=== PATIENT | male | born 1985 | race African-American/Black ===

== ENCOUNTER 2022-02-05 19:20 | Emergency (ER) | payer MEDICAID, SELFPAY ==
[2022-02-05 19:24] VITALS: BP 139/78; PULSE 126; RESP 18; TEMP 37.4; O2SAT 100; BMI 30.9
--- NOTE | 2022-02-05 19:29 | DI.RAD.S_ITS ---
PROCEDURE: XR CHEST 1V INDICATIONS: suspected sepsis TECHNIQUE: One view of the chest was acquired. COMPARISON: None. FINDINGS: Surgical changes and devices: None. Lungs and pleura: Lungs are clear. No pleural effusions or pneumothorax. Mediastinum: Mediastinal contours appear normal. Heart size is normal. Bones and chest wall: No suspicious bony lesions. Overlying soft tissues appear unremarkable. IMPRESSION: Normal for age, source of current suspected sepsis symptoms is not seen. Dictated by: Glenroy Tamez M.D. on 02/05/2022 at 21:04 Approved by: Glenroy Tamez M.D. on 02/05/2022 at 21:05
--- NOTE | 2022-02-05 19:33 | ED_ITS ---
HPI - Skin/Abscess/Foreign Bdy General Chief complaint: Skin/Abscess/Foreign Body Stated complaint: Left hand injury Time Seen by Provider: 02/05/22 19:26 Source: patient Mode of arrival: Ambulatory Limitations: no limitations History of Present Illness HPI narrative: 37-year-old male smoker with history of IV drug abuse presents with family in the chief complaint of severe pain and swelling of his left hand. He admits to being a user of both fentanyl and methamphetamines. He is had frequent skin infections in the past. He states that he had just been at another facility because of this significant pain and swelling and has a ring stuck on his finger that they were attempting to remove, he was insufficient pain and became agitated and admittedly left against medical advice and presented here. He presents with the mother of his child who states she encouraged him to come against his wishes. He is had fever and chills and feels ill. He admits that he is scared and nervous but wants help. He denies any runny nose, sore throat or cough. He has no chest pain or shortness of breath. He is not a great historian and states that he has been having pain and swelling in his hand probably for a few days. He denies any specific injury Related Data Allergies Allergy/AdvReac Type Severity Reaction Status Date / Time No Known Drug Allergies Allergy Verified 02/05/22 21:36 Review of Systems Review of Systems Narrative: GENERAL: Denies chills, fatigue, malaise, fever, sweats. HEENT: Denies sinus pain, ear pain, sore throat, difficulty swallowing, dizziness. RESPIRATORY: Denies dyspnea, cough, wheezing, hemoptysis, sputum. CARDIOVASCULAR: Denies chest pain, palpitations, orthopnea, edema, GASTROINTESTINAL: Denies nausea, vomiting, abdominal pain, diarrhea, constipation, melena. : Denies dysuria, frequency, incontinence, hematuria, urinary retention. MUSCULOSKELETAL: See HPI SKIN: See HPI NEUROLOGIC: Denies weakness, headache, numbness, change in speech, confusion, seizures, incoordination. PSYCHIATRIC: No concerning psychosocial issues. 12 point review of systems is negative except for those stated above Patient History Social History Smoking Status: Never smoker Smoking Status: Never smoker alcohol intake frequency: 0-2 drinks per day Substance Use Type: heroin, opiates and methamphetamine Exam Narrative Exam Narrative: GENERAL: [37] year old patient appears stated age. Patient is anxious and unwell, GCS 15, demonstrates capacity and is able to speak clearly and walk a straight line HEAD: Atraumatic. Normocephalic. EYES: Pupils equal round and reactive. Extraocular motions intact. No scleral icterus. No injection or drainage. ENT: Nose without bleeding, purulent drainage. Throat without erythema, tonsillar hypertrophy or exudate. Airway patent. NECK: Trachea midline. Non tender CARDIOVASCULAR: Tachycardic but regular rhythm without murmurs, gallops, or rubs. RESPIRATORY: Clear to auscultation. Breath sounds equal bilaterally. No wheezes, rales, or rhonchi. GASTROINTESTINAL: Abdomen soft, non-tender, nondistended. EXTREMITIES: Left hand with significant swelling of all fingers it which extends proximally to include the dorsum of the hand as well as palmar surface, he is unable to make a fist due to significant pain, there is erythema and some lymphangitis extending proximally. There is a ring that has been partially cut on his left 4th finger with significant skin breakdown underneath in concern for tourniquet effect BACK: Nontender without deformity or crepitance. No flank tenderness. NEURO: AOx3. SKIN: No rash or erythema of visible areas Initial Vital Signs Initial Vital Signs: Vital Signs Temperature 99.4 F 02/05/22 19:24 Pulse Rate 126 02/05/22 19:24 Respiratory Rate 18 02/05/22 19:24 Blood Pressure 139/78 02/05/22 19:24 Pulse Oximetry 100 02/05/22 19:24 Oxygen Delivery Method 02/05/22 19:24 Course Orders Ordered: ED Orders 02/05/22 19:29 XR chest 1V Stat RT Consult Eval and Treat NOW 02/05/22 19:35 CRP [C-Reactive Protein Quant] Stat Complete Blood Count AUTO DIFF Stat Comprehensive Metabolic Panel Stat ESR [Erythrocyte Sedimentation Rate] Stat Ethanol (ETOH) Stat Lactate (Lactic Acid) Stat Lipase Stat Procalcitonin Stat 02/05/22 19:52 CT UE LT w con Stat 02/05/22 19:54 EKG-12 Lead Stat 02/05/22 19:56 Blood Culture Stat 02/05/22 20:07 Urine Drug Screen, Rapid Stat 02/05/22 20:09 COVID19 -Nasal RAPID/Pre-Proc Stat Discontinued Medications Sodium Chloride (Normal Saline 0.9%) 1,000 mls @ 1,000 mls/hr IV BOLUS ONE Stop: 02/05/22 20:28 Last Infusion: 02/05/22 21:36 Dose: 0 mls/hr Documented By: Infusion: 02/05/22 20:49 Dose: 0 mls/hr Documented By: Admin: 02/05/22 19:52 Dose: 1,000 mls/hr Documented By: YAKELIN Sodium Chloride (Normal Saline 0.9%) 1,776 mls @ 592 mls/hr 30 ml/kg infuse over 3 hr (1776 ml) IV NOW ONE Stop: 02/05/22 22:37 Last Infusion: 02/05/22 20:48 Dose: 0 mls/hr Documented By: Admin: 02/05/22 19:52 Dose: 592 mls/hr Documented By: YAKELIN Vancomycin HCl/Dextrose (Vancomycin) 1,500 mg in 300 mls @ 200 mls/hr IV NOW ONE Stop: 02/05/22 21:23 Last Infusion: 02/05/22 22:18 Dose: 0 mls/hr Documented By: Infusion: 02/05/22 20:49 Dose: 0 mls/hr Documented By: Admin: 02/05/22 20:07 Dose: 200 mls/hr Documented By: CHICA Lactated Ringer's (Lactated Ringers) 1,000 mls @ 42 mls/hr IV CONT JERMAN Consultations Consultation #1: Early consultation with Orthopedic surgery, after reviewing history and physical exam she states she is on her way and is activated the OR team Vital Signs Vital signs: Vital Signs - 8 hr 02/05/22 19:24 Temperature 99.4 F Pulse Rate 126 Respiratory Rate 18 Blood Pressure 139/78 Pulse Oximetry 100 Oxygen Delivery Method Room Air MDM - Skin/Abscess/Foreign Bdy Lab Data Result diagrams: 02/05/22 19:35 02/05/22 19:35 Labs: Lab Results 02/05/22 02/05/22 02/05/22 Range/Units 19:35 19:35 19:35 WBC 31.6 H* (4.5-11.0) X10^3/uL RBC 3.96 L (4.5-5.9) X10^6/uL Hgb 11.6 L (13.5-17.5) g/dL Hct 34.5 L (41-53) % MCV 87.1 (80-100) fL MCH 29.3 (26-34) PG MCHC 33.7 (30-36) % RDW 14.0 (11.6-14.8) % Plt Count 445 H (150-400) X10^3/uL Neut % (Auto) Not Reportable Lymph % (Auto) Not Reportable [place] % (Auto) Not Reportable Eos % (Auto) Not Reportable Baso % (Auto) Not Reportable Lymph # (Auto) Not Reportable [place] # (Auto) Not Reportable Baso # (Auto) Not Reportable Total Counted 100 Seg Neutrophils % 88.0 H (38-70) % Lymphocytes % (Manual) 6.0 L (25-45) % Monocytes % (Manual) 5.0 (2-11) % Promyelocytes % 1.0 H (-0) % Neutrophils # (Manual) 77870 H (8075-8589) /uL Smudge Cells 3+ H RBC Morphology See below ESR (0-15) MM/HR Sodium 132 L (137-145) mmol/L Potassium 3.4 (3.4-5.1) mmol/L Chloride 102 (98-107) mmol/L Carbon Dioxide 23 (22-32) mmol/L BUN 7 L (9-20) mg/dL Creatinine 0.63 L (0.66-1.25) mg/dL Estimated GFR > 60 (>60) mL/min BUN/Creatinine Ratio 11.1 (6-22) Glucose 103 H (70-100) mg/dL Lactate 1.6 (0.7-2.1) mmol/L Calcium 8.2 L (8.4-10.2) mg/dL Total Bilirubin 0.8 (0.2-1.3) mg/dL AST 62 H (17-59) IU/L ALT 45 (<50) IU/L Alkaline Phosphatase 104 (38-126) U/L C-Reactive Protein (<1.0) mg/dL Total Protein 7.0 (6.3-8.2) g/dL Albumin 3.5 (3.5-5.0) g/dL Globulin 3.5 (1.7-4.1) g/dL Albumin/Globulin Ratio 1.0 (1.0-2.8) Lipase 54 (23-300) U/L Procalcitonin 0.19 (<0.5) ng/mL U Opiates 300ng/mL cut (Negative) Ur Oxycodone Screen (Negative) Urine Methadone Screen (Negative) Ur Barbiturates Screen (Negative) U Tricyclic Antidepress (Negative) Ur Phencyclidine Scrn (Negative) Ur Amphetamines Screen (Negative) U Methamphetamines Scrn (Negative) Ur MDMA Scrn (Ecstasy) (Negative) U Benzodiazepines Scrn (Negative) Urine Cocaine Screen (Negative) U Marijuana (THC) Screen (Negative) Ethyl Alcohol ( - 10) mg/dL SARS-CoV-2 (PCR) (Negative) 02/05/22 02/05/22 02/05/22 Range/Units 19:35 19:35 19:35 WBC (4.5-11.0) X10^3/uL RBC (4.5-5.9) X10^6/uL Hgb (13.5-17.5) g/dL Hct (41-53) % MCV (80-100) fL MCH (26-34) PG MCHC (30-36) % RDW (11.6-14.8) % Plt Count (150-400) X10^3/uL Neut % (Auto) Lymph % (Auto) [place] % (Auto) Eos % (Auto) Baso % (Auto) Lymph # (Auto) [place] # (Auto) Baso # (Auto) Total Counted Seg Neutrophils % (38-70) % Lymphocytes % (Manual) (25-45) % Monocytes % (Manual) (2-11) % Promyelocytes % (-0) % Neutrophils # (Manual) (9962-2876) /uL Smudge Cells RBC Morphology ESR 35 H (0-15) MM/HR Sodium (137-145) mmol/L Potassium (3.4-5.1) mmol/L Chloride (98-107) mmol/L Carbon Dioxide (22-32) mmol/L BUN (9-20) mg/dL Creatinine (0.66-1.25) mg/dL Estimated GFR (>60) mL/min BUN/Creatinine Ratio (6-22) Glucose (70-100) mg/dL Lactate (0.7-2.1) mmol/L Calcium (8.4-10.2) mg/dL Total Bilirubin (0.2-1.3) mg/dL AST (17-59) IU/L ALT (<50) IU/L Alkaline Phosphatase (38-126) U/L C-Reactive Protein 15.8 H (<1.0) mg/dL Total Protein (6.3-8.2) g/dL Albumin (3.5-5.0) g/dL Globulin (1.7-4.1) g/dL Albumin/Globulin Ratio (1.0-2.8) Lipase (23-300) U/L Procalcitonin (<0.5) ng/mL U Opiates 300ng/mL cut (Negative) Ur Oxycodone Screen (Negative) Urine Methadone Screen (Negative) Ur Barbiturates Screen (Negative) U Tricyclic Antidepress (Negative) Ur Phencyclidine Scrn (Negative) Ur Amphetamines Screen (Negative) U Methamphetamines Scrn (Negative) Ur MDMA Scrn (Ecstasy) (Negative) U Benzodiazepines Scrn (Negative) Urine Cocaine Screen (Negative) U Marijuana (THC) Screen (Negative) Ethyl Alcohol 33 H ( - 10) mg/dL SARS-CoV-2 (PCR) (Negative) 02/05/22 02/05/22 Range/Units 20:07 20:09 WBC (4.5-11.0) X10^3/uL RBC (4.5-5.9) X10^6/uL Hgb (13.5-17.5) g/dL Hct (41-53) % MCV (80-100) fL MCH (26-34) PG MCHC (30-36) % RDW (11.6-14.8) % Plt Count (150-400) X10^3/uL Neut % (Auto) Lymph % (Auto) [place] % (Auto) Eos % (Auto) Baso % (Auto) Lymph # (Auto) [place] # (Auto) Baso # (Auto) Total Counted Seg Neutrophils % (38-70) % Lymphocytes % (Manual) (25-45) % Monocytes % (Manual) (2-11) % Promyelocytes % (-0) % Neutrophils # (Manual) (3979-5104) /uL Smudge Cells RBC Morphology ESR (0-15) MM/HR Sodium (137-145) mmol/L Potassium (3.4-5.1) mmol/L Chloride (98-107) mmol/L Carbon Dioxide (22-32) mmol/L BUN (9-20) mg/dL Creatinine (0.66-1.25) mg/dL Estimated GFR (>60) mL/min BUN/Creatinine Ratio (6-22) Glucose (70-100) mg/dL Lactate (0.7-2.1) mmol/L Calcium (8.4-10.2) mg/dL Total Bilirubin (0.2-1.3) mg/dL AST (17-59) IU/L ALT (<50) IU/L Alkaline Phosphatase (38-126) U/L C-Reactive Protein (<1.0) mg/dL Total Protein (6.3-8.2) g/dL Albumin (3.5-5.0) g/dL Globulin (1.7-4.1) g/dL Albumin/Globulin Ratio (1.0-2.8) Lipase (23-300) U/L Procalcitonin (<0.5) ng/mL U Opiates 300ng/mL cut Negative (Negative) Ur Oxycodone Screen Negative (Negative) Urine Methadone Screen Negative (Negative) Ur Barbiturates Screen Negative (Negative) U Tricyclic Antidepress Negative (Negative) Ur Phencyclidine Scrn Negative (Negative) Ur Amphetamines Screen Positive H (Negative) U Methamphetamines Scrn Positive H (Negative) Ur MDMA Scrn (Ecstasy) Negative (Negative) U Benzodiazepines Scrn Negative (Negative) Urine Cocaine Screen Negative (Negative) U Marijuana (THC) Screen Positive H (Negative) Ethyl Alcohol ( - 10) mg/dL SARS-CoV-2 (PCR) Negative (Negative) Urine Dip Bedside Urine Glucose Negative Bedside Urine Bilirubin - Negative Bedside Urine Ketone - Negative Urine Specific Staples 1.010 Bedside Urine Occult Blood +/- Bedside Urine pH 6.0 Bedside Urine Protein - Negative Bedside Urine Urobilinogen - Negative Bedside Urine Nitrite - Negative Bedside Urine Leukocytes - Negative Esterase MDM Narrative Medical decision making narrative: Patient with history and physical exam concerning for flexor tenosynovitis, and likely deep space infection of the left hand which clearly requires surgical intervention. Brief attempt to remove ring at the bedside but swelling is so significant that any ring removal tool is unable to reach the ring. Patient was initially quite resistant to the concept of a trip to the OR but after extensive discussion at the bedside involving myself, nursing as well as the mother of his child he elects to proceed to the operating room. He does demonstrate capacity to make his own decisions, he is speaking clearly and is articulate, he understands the risks and benefits of surgical intervention and eventually is open to the idea and recognizes the need Discharge Plan Departure Patient Disposition: Admitted to Surgery Clinical Impression: Sepsis, Infected hand, Flexor tenosynovitis of finger Admit Date/Time: 02/05/22 20:44 Admit Provider: Crystal Nicholas
[2022-02-05] MEDS: SODIUM CHLORIDE 0.9% 1,776 ML 592 ML IV (19:52)
[2022-02-05] MEDS: SODIUM CHLORIDE 0.9% 1,000 ML 1000 ML IV (19:52)
--- NOTE | 2022-02-05 19:52 | DI.CT.S_ITS ---
PROCEDURE: CT UE LT W CON INDICATIONS: deep infection of hand/arm, abscess? TECHNIQUE: After the administration of intravenous contrast, 3 mm axial sections acquired of the left distal forearm and wrist area. , with coronal and sagittal reformats. COMPARISON: None. FINDINGS: Image quality: Significantly degraded by patient motion during image acquisition.. Bones: Very limited quality visualization, no definite acute disease. Soft tissues: Very limited quality visualization, no definite acute disease. IMPRESSION: The study is quite limited by patient motion during image acquisition. Follow-up contrast-enhanced CT or MR scanning likely is warranted if the patient is willing to cooperate with the examination. In my opinion abscess or osteomyelitis has not been fully excluded but is considered unlikely based on the images available. Plain film follow-up imaging may be warranted also given the short acquisition time.. Dictated by: Glenroy Tamez M.D. on 02/05/2022 at 21:31 Approved by: Glenroy Tamez M.D. on 02/05/2022 at 21:33
[2022-02-05 19:56] LABS: Hematocrit 34.5 % (41-53); Hemoglobin 11.6 g/dL (13.5-17.5); Mean Corpuscular HGB Conc 33.7 % (30-36); Mean Corpuscular Hemoglobin 29.3 PG (26-34); Mean Corpuscular Volume 87.1 fL (80-100); Platelet Count 445 X10^3/uL (150-400); Red Blood Cell Count 3.96 X10^6/uL (4.5-5.9)
[2022-02-05 19:59] LABS: Lactate (Lactic Acid) 1.6 mmol/L (0.7-2.1)
[2022-02-05 20:00] LABS: Add Manual Diff / Slide Review YES; White Blood Cell Count 31.6 X10^3/uL (4.5-11.0)
[2022-02-05 20:02] LABS: Alanine Aminotransferase 45 IU/L (<50); Albumin 3.5 g/dL (3.5-5.0); Alkaline Phosphatase 104 U/L (38-126); Aspartate Aminotransferase 62 IU/L (17-59); BUN Creatinine Ratio 11.1 (6-22); Bilirubin Total 0.8 mg/dL (0.2-1.3); Blood Urea Nitrogen 7 mg/dL (9-20); Calcium 8.2 mg/dL (8.4-10.2); Carbon Dioxide 23 mmol/L (22-32); Chloride 102 mmol/L (98-107); Estimated Glomerular Filt Rate > 60 mL/min (>60); Globulin 3.5 g/dL (1.7-4.1); Glucose 103 mg/dL (70-100); HEMOLYSIS < 15 (0-50); Lipase 54 U/L (23-300); Potassium 3.4 mmol/L (3.4-5.1); Sodium 132 mmol/L (137-145)
[2022-02-05] MEDS: VANCOMYCIN 1,500 MG/300 ML PIGGYBACK 200 MG IV (20:07)
[2022-02-05 20:17] LABS: Procalcitonin 0.19 ng/mL (<0.5)
[2022-02-05 20:21] LABS: Ethanol (ETOH) 33 mg/dL
[2022-02-05 20:24] LABS: Erythrocyte Sedimentation Rate 35 MM/HR (0-15)
[2022-02-05 20:26] LABS: Ur Creatinine Normal (Normal); Ur Specific Gravity Normal (Normal); Urine Cocaine Negative (Negative); Urine Tetrahydrocannabinol Positive (Negative); Urine pH Normal (Normal)
[2022-02-05 20:27] LABS: UR Morphine/Opiate cutoff 300 Negative (Negative); Urine Amphetamines Positive (Negative); Urine Barbiturates Negative (Negative); Urine Benzodiazepines Negative (Negative); Urine MDMA Negative (Negative); Urine Methadone Negative (Negative); Urine Methamphetamines Positive (Negative); Urine Oxycodone Negative (Negative); Urine Phencyclidine Negative (Negative); Urine Tricyclic Antidepressant Negative (Negative)
[2022-02-05 20:34] LABS: Neutrophils Absolute Manual 27808 /uL (3000-5900); Total Cells Counted 100
[2022-02-05 20:37] LABS: COVID19 -Nasal RAPID Negative (Negative)
[2022-02-05 20:38] LABS: Smudge Cells 3+
[2022-02-05 20:39] LABS: C-Reactive Protein Quant 15.8 mg/dL (<1.0)
--- NOTE | 2022-02-05 21:08 | SUR.HOLD ---
Patient to holding area with PACU nurse but patient refusing to have surgery, refusing to lie down; states that he is afraid of surgery and does not want to go to sleep. Dr Fenton, ER physician, and Dr Nicholas, Surgeon at bedside for staff safety due to patient being under the influence of fentanyl and methamphetamines. Multiple attempts made by multiple staff members to encourage patient to agree to surgery. Daisy, girlfriend of patient, at bedside to attempt to convince patient to have surgery.
--- NOTE | 2022-02-05 21:33 | P.HP_ITS ---
History of Present Illness History of Present Illness Date Patient Seen: 02/05/22 Time Patient Seen: 21:33 Chief complaint: Left hand injury Narrative: Patient is a 37-year-old male with a history of IV drug use well as methamphetamines and fentanyl. He had a week and a half left hand pain and left ring finger swelling. significant erythema and ring finger swelling. He was seen at [facility] ER yesterday with a attempted to cut the ring off they were unsuccessful and the patient left to smoke. Since then he has had increased swelling and pain and presents to [facility] Emergency Room where he was noted to have a fusiform swollen digit is low [place] [address] and a CRP of 15. Presentation of sepsis was indicated for operative removal of the ring and drainage of hand abscess suspected flexor tenosynovitis. They were unable to access the ring with the ring cutters in the emergency room. Of note the patient is extremely anxious at the thought of ?anesthesia and ?going to sleep he has been counseled extensively by the ER staff, anesthesiologist and myself. Unfortunately with his infection and swelling wo uld not be a candidate to tolerate a local anesthetic. He is also to states that he would not stay overnight. We discussed the importance of IV antibiotics for his condition and risks of worsening. Some history is obtained from the former partner seizures a 14-year-old daughter with. The partner [place] him [place] music [place] and his finger and brought him to the hospital but they otherwise do not have a relationship. Of but she states that the patient recently got out of penitentiary was in [place] for 5 years and we released and a and states he has gotten back into drugs. Using [id number] (little blue pills) Patient History Family & Social History Safety & Behavioral: Feels Safe in Current Yes Environment Tobacco & Substance use: Smoking Status Never smoker alcohol intake frequency 0-2 drinks per day Substance Use Type heroin,opiates,methamphetamine Meds Home Medications and Allergies Allergies Allergy/AdvReac Type Severity Reaction Status Date / Time No Known Drug Allergies Allergy Verified 02/05/22 21:36 Review of Systems Review of Systems Narrative: Anxiety, chills, states his body is ?sick? left hand swelling pain ROS: Yes All systems reviewed with the patient and are negative except as otherwise documented Exam Vital Signs (past 8 hours): - 02/05/22 19:24 Temperature 99.4 F Pulse Rate 126 Respiratory Rate 18 Blood Pressure 139/78 Pulse Oximetry 100 Oxygen Delivery Method Room Air Oxygen Delivery Method Room Air Narrative Exam Narrative: Anxious appearing male pacing around the preoperative unit this to sit down. Moderate distress. Mentions he does not want to go to sleep but okay to be cut does not want to stay overnight but knows his hand is bad. Respirations unlabored on room air lungs clear Heart tachycardia Left hand ring in place extreme swelling ring finger with exploration ulceration partly dorsally under the ring. No other wounds. There is fusiform swelling of the ring digit tenderness over the A1 mi. Global swelling of the left hand. With moderate erythema. Forearm is soft. Radial pulses palpable Const General: anxious Objective Imaging CT- UE: Radiologist's impression: IMPRESSION: The study is quite limited by patient motion during image acquisition. Follow-up contrast-enhanced CT or MR scanning likely is warranted if the patient is willing to cooperate with the examination. In my opinion abscess or osteomyelitis has not been fully excluded but is considered unlikely based on the images available. Plain film follow-up imaging may be warranted also given the short acquisition time.. Dictated by: Glenroy Tamez M.D. on 02/05/2022 at 21:31 Labs Result Diagrams: 02/05/22 19:35 02/05/22 19:35 Labs: Laboratory Results - last 24 hr 02/05/22 02/05/22 02/05/22 19:35 19:35 19:35 WBC 31.6 H* RBC 3.96 L Hgb 11.6 L Hct 34.5 L MCV 87.1 MCH 29.3 MCHC 33.7 RDW 14.0 Plt Count 445 H Neut % (Auto) Not Reportable Lymph % (Auto) Not Reportable [place] % (Auto) Not Reportable Eos % (Auto) Not Reportable Baso % (Auto) Not Reportable Lymph # (Auto) Not Reportable [place] # (Auto) Not Reportable Baso # (Auto) Not Reportable Total Counted 100 Seg Neutrophils % 88.0 H Lymphocytes % (Manual) 6.0 L Monocytes % (Manual) 5.0 Promyelocytes % 1.0 H Neutrophils # (Manual) 65830 H Smudge Cells 3+ H RBC Morphology See below ESR Sodium 132 L Potassium 3.4 Chloride 102 Carbon Dioxide 23 BUN 7 L Creatinine 0.63 L Estimated GFR > 60 BUN/Creatinine Ratio 11.1 Glucose 103 H Lactate 1.6 Calcium 8.2 L Total Bilirubin 0.8 AST 62 H ALT 45 Alkaline Phosphatase 104 C-Reactive Protein Total Protein 7.0 Albumin 3.5 Globulin 3.5 Albumin/Globulin Ratio 1.0 Lipase 54 Procalcitonin 0.19 U Opiates 300ng/mL cut Ur Oxycodone Screen Urine Methadone Screen Ur Barbiturates Screen U Tricyclic Antidepress Ur Phencyclidine Scrn Ur Amphetamines Screen U Methamphetamines Scrn Ur MDMA Scrn (Ecstasy) U Benzodiazepines Scrn Urine Cocaine Screen U Marijuana (THC) Screen Ethyl Alcohol SARS-CoV-2 (PCR) 02/05/22 02/05/22 02/05/22 19:35 19:35 19:35 WBC RBC Hgb Hct MCV MCH MCHC RDW Plt Count Neut % (Auto) Lymph % (Auto) [place] % (Auto) Eos % (Auto) Baso % (Auto) Lymph # (Auto) [place] # (Auto) Baso # (Auto) Total Counted Seg Neutrophils % Lymphocytes % (Manual) Monocytes % (Manual) Promyelocytes % Neutrophils # (Manual) Smudge Cells RBC Morphology ESR 35 H Sodium Potassium Chloride Carbon Dioxide BUN Creatinine Estimated GFR BUN/Creatinine Ratio Glucose Lactate Calcium Total Bilirubin AST ALT Alkaline Phosphatase C-Reactive Protein 15.8 H Total Protein Albumin Globulin Albumin/Globulin Ratio Lipase Procalcitonin U Opiates 300ng/mL cut Ur Oxycodone Screen Urine Methadone Screen Ur Barbiturates Screen U Tricyclic Antidepress Ur Phencyclidine Scrn Ur Amphetamines Screen U Methamphetamines Scrn Ur MDMA Scrn (Ecstasy) U Benzodiazepines Scrn Urine Cocaine Screen U Marijuana (THC) Screen Ethyl Alcohol 33 H SARS-CoV-2 (PCR) 02/05/22 02/05/22 20:07 20:09 WBC RBC Hgb Hct MCV MCH MCHC RDW Plt Count Neut % (Auto) Lymph % (Auto) [place] % (Auto) Eos % (Auto) Baso % (Auto) Lymph # (Auto) [place] # (Auto) Baso # (Auto) Total Counted Seg Neutrophils % Lymphocytes % (Manual) Monocytes % (Manual) Promyelocytes % Neutrophils # (Manual) Smudge Cells RBC Morphology ESR Sodium Potassium Chloride Carbon Dioxide BUN Creatinine Estimated GFR BUN/Creatinine Ratio Glucose Lactate Calcium Total Bilirubin AST ALT Alkaline Phosphatase C-Reactive Protein Total Protein Albumin Globulin Albumin/Globulin Ratio Lipase Procalcitonin U Opiates 300ng/mL cut Negative Ur Oxycodone Screen Negative Urine Methadone Screen Negative Ur Barbiturates Screen Negative U Tricyclic Antidepress Negative Ur Phencyclidine Scrn Negative Ur Amphetamines Screen Positive H U Methamphetamines Scrn Positive H Ur MDMA Scrn (Ecstasy) Negative U Benzodiazepines Scrn Negative Urine Cocaine Screen Negative U Marijuana (THC) Screen Positive H Ethyl Alcohol SARS-CoV-2 (PCR) Negative Assessment & Plan Assessment and plan (1) Sepsis: Status: Acute (2) Infected hand: Status: Acute (3) Flexor tenosynovitis of finger: Status: Acute Plan Plan was to be operative debridement and ring removal for his hand abscesses and then admission to the hospital for IV antibiotics and treatment for sepsis. However in the preoperative area the patient refused surgery. His previous partner that brought him to the hospital states she had spoken with him and heard him agree to surgery few minutes earlier. Unfortunately patient was now adamant on not ?going to sleep he denied any family history of medication reactions to this. He was very anxious and pacing in the PACU and said that he was ?freaking out. myself Dr. Aguilar and Dr. Reddy discussed with the patient the seriousness of his condition and the treatment that were indicated. Stated that he could not think about that when he was ?freaking out. He was offered medication for his anxiety. He received some Versed which calmed him down. This was allowed to wear off and this partner was brought back to PACU with us to once again asked him if he would allow treatment. He would not allow anesthesia however agreed and asked for attempt on ring removal at bedside -this was briefly attempted but I was just able to get the needle-nose plier under the ring and the pain was intolerable for him this is discontinued. Discussed any further attempts at removal or treatment of the infection as discussed previously require general anesthetic. He once again declined this and signed Against Medical Advice paperwork and left. At this point he had finished about 80% of the vancomycin 1.5 g infusion. His IV was discontinued prior to leaving against medical advice. COVID-19 COVID-19 status: Negative Time Spent With Patient Time with patient: 30 to 49 minutes with 50% spent counseling/coordinating care Critical Care time: I spent a total of [] minutes of critical care time on this patient's care today; this time is exclusive of procedural time.
--- NOTE | 2022-02-05 21:34 | SUR.HOLD ---
Patient drowsy now from use of Versed to calm him down; girlfriend at bedside. Explained to girlfriend that due to legal implications, patient could not be forced into surgery or anesthesia. There is no one legally who can make decisions for patient.
--- NOTE | 2022-02-05 21:59 | SUR.HOLD ---
Dr Nicholas attempting to remove ring at bedside but unable to due to patient's continued agitation and refusal to be cooperative. Patient wanting to use the bathroom. Significant other assisting patient in bathroom. Staff making one last attempt to have patient consent to some sort of intervention to remove ring from hand and/or consent to surgery. Patient refuses. AMA signed; IV discontinued. Patient escorted to the parking lot of the ER. Patient steady on his feet; girlfriend following.
[2022-02-06 22:37] LABS: Acinetobacter baumannii Not Detected (Not Detect); Candida albicans Not Detected (Not Detect); Candida glabrata Not Detected (Not Detect); Candida krusei Not Detected (Not Detect); Candida parapsilosis Not Detected (Not Detect); Candida tropicalis Not Detected (Not Detect); E. coli Not Detected (Not Detect); Enterobacter cloacae complex Not Detected (Not Detect); Enterobacteriaceae species Not Detected (Not Detect); Enterococcus species Not Detected (Not Detect); Haemophilus influenzae Not Detected (Not Detect); Listeria monocytogenes Not Detected (Not Detect); Methicillin-resistant gene Not Detected (Not Detect); Neisseria meningitidis Not Detected (Not Detect); Proteus species Not Detected (Not Detect); Pseudomonas aeruginosa Not Detected (Not Detect); Serratia marcescens Not Detected (Not Detect); Staphylococcus species Detected (Not Detect); Streptococcus agalactiae (Gr B Not Detected (Not Detect); Streptococcus pneumonia Not Detected (Not Detect); Streptococcus pyogenes (Gr A) Not Detected (Not Detect); Streptococcus species Not Detected (Not Detect)
== END 2022-02-05 20:51 ==
LOC: ED 19:45 → AC 20:50
PROVIDERS: Emergency Provider Emergency Medicine; Referring Provider Emergency Medicine; Visit Provider Orthopaedic Surgery Foot and Ankle Surgery
DX: A41.9 Sepsis, unspecified organism (principal); M65.142 Other infective (teno)synovitis, left hand; Z53.29 Procedure and treatment not carried out because of patient's decision for other reasons
CPT/HCPCS: 36415; 71045; 73201; 80053; 80305; 80320; 81003; 83605; 83690; 84145; 85007; 85025; 85651; 86140; 87040; 87150; 87635; 93005; 93010; 96365; 99285; C9803; J2250; J2704; J3010; Q9967

== ENCOUNTER 2022-02-06 20:16 | Inpatient (IN) | payer MEDICAID, SELFPAY ==
[2022-02-06 20:20] VITALS: BP 138/84; PULSE 113; RESP 30; TEMP 37.1; O2SAT 100
[2022-02-06 20:35] LABS: Add Manual Diff / Slide Review NO; Basophils Absolute Auto 100 /uL (0-100); Basophils Percent Auto 0.5 % (0-2); Eosinophils Absolute Auto 100 /uL (0-450); Eosinophils Percent Auto 0.5 % (2-4); Hematocrit 33.8 % (41-53); Hemoglobin 11.6 g/dL (13.5-17.5); Lymphocytes Absolute Auto 1900 /uL (1100-4500); Lymphocytes Percent Auto 8.2 % (25-40); Mean Corpuscular HGB Conc 34.3 % (30-36); Mean Corpuscular Hemoglobin 29.7 PG (26-34); Mean Corpuscular Volume 86.6 fL (80-100); Monocytes Absolute Auto 1400 /uL (0-900); Neutrophils Absolute Auto 20000 /uL (1500-7000); Neutrophils Percent Auto 84.8 % (50-75); Platelet Count 433 X10^3/uL (150-400); Red Cell Distribution Width 14.2 % (11.6-14.8); White Blood Cell Count 23.6 X10^3/uL (4.5-11.0)
[2022-02-06 20:46] LABS: Blood Urea Nitrogen 5 mg/dL (9-20); Calcium 7.8 mg/dL (8.4-10.2); Carbon Dioxide 24 mmol/L (22-32); Chloride 107 mmol/L (98-107); Estimated Glomerular Filt Rate > 60 mL/min (>60); Glucose 114 mg/dL (70-100); HEMOLYSIS 30 (0-50); Potassium 3.3 mmol/L (3.4-5.1); Sodium 137 mmol/L (137-145)
[2022-02-06 20:50] LABS: COVID19 -Nasal RAPID Negative (Negative)
[2022-02-06 20:58] VITALS: BP 154/84; PULSE 112; PULSE 114; RESP 18; O2SAT 100; O2SAT 98
[2022-02-06 21:00] VITALS: BP 147/84; PULSE 110; O2SAT 99
[2022-02-06 21:30] VITALS: PULSE 116; O2SAT 100
[2022-02-06] MEDS: VANCOMYCIN 1,500 MG/300 ML PIGGYBACK 200 MG IV (21:44)
[2022-02-06] MEDS: SODIUM CHLORIDE 0.9% 1,000 ML 150 ML IV (21:44)
[2022-02-06 22:11] VITALS: BMI 30.9
--- NOTE | 2022-02-06 22:28 | ED_ITS ---
HPI - Skin/Abscess/Foreign Bdy General Chief complaint: Skin/Abscess/Foreign Body Stated complaint: Left hand ring finger injury Time Seen by Provider: 02/06/22 20:20 Source: patient and family Mode of arrival: Ambulatory History of Present Illness HPI narrative: 37-year-old male smoker with history of IV drug abuse presents with family in the chief complaint of severe pain and swelling of his left hand. He had been seen and evaluated by myself yesterday and was set to go to the operating room for definitive management of what appears to be tenosynovitis, likely deep space infection including abscess of the hand as well as ring removal that was unable to be addressed in the emergency department. He became anxious and quite hazel rn about and despite the best efforts of myself, Orthopedics and anesthesia he elected to leave Against Medical Advice from the operating room. He had gone home and thought about it and presents with his mother stating that he wants our help and is open to anesthesia or whatever needs to be done to help his hand. He feels very unwell and is shaky, febrile with a high heart rate. He is admittedly anxious and states that he is not used anymore drugs since I last saw him. Related Data Home Medications Medication Instructions Recorded Confirmed No Known Home Medications 02/07/22 02/07/22 Allergies Allergy/AdvReac Type Severity Reaction Status Date / Time No Known Drug Allergies Allergy Verified 02/05/22 21:36 Review of Systems Review of Systems Narrative: GENERAL: Denies chills, fatigue, malaise, fever, sweats. HEENT: Denies sinus pain, ear pain, sore throat, difficulty swallowing, dizzi ness. RESPIRATORY: Denies dyspnea, cough, wheezing, hemoptysis, sputum. CARDIOVASCULAR: Denies chest pain, palpitations, orthopnea, edema, GASTROINTESTINAL: Denies nausea, vomiting, abdominal pain, diarrhea, constipation, melena. : Denies dysuria, frequency, incontinence, hematuria, urinary retention. MUSCULOSKELETAL: See HPI SKIN: D see HPI NEUROLOGIC: Denies weakness, headache, numbness, change in speech, confusion, seizures, incoordination. PSYCHIATRIC: No concerning psychosocial issues. 12 point review of systems is negative except for those stated above Patient History Social History household members: none Smoking Status: Never smoker alcohol intake: current Smoking Status: Never smoker alcohol intake frequency: 0-2 drinks per day Substance Use Type: heroin, opiates and methamphetamine Exam Narrative Exam Narrative: GENERAL: [37] year old patient appears stated age. Well-developed patient, in mild distress. Still a bit anxious but significant improvement over yesterday HEAD: Atraumatic. Normocephalic. EYES: Pupils equal round and reactive. Extraocular motions intact. No scleral icterus. No injection or drainage. ENT: Nose without bleeding, purulent drainage. Throat without erythema, tonsillar hypertrophy or exudate. Airway patent. NECK: Trachea midline. Non tender CARDIOVASCULAR: Regular rate and rhythm without murmurs, gallops, or rubs. RESPIRATORY: Clear to auscultation. Breath sounds equal bilaterally. No wheezes, rales, or rhonchi. GASTROINTESTINAL: Abdomen soft, non-tender, nondistended. EXTREMITIES: Significant pain and swelling of entire left hand with erythema. Ring finger most significantly affected with fusiform swelling, ring in place with underlying skin breakdown and concern for tourniquet effect. Pain along dorsal and flexor aspects of all fingers in and BACK: Nontender without deformity or crepitance. No flank tenderness. NEURO: AOx3. SKIN: No rash or erythema of visible areas Initial Vital Signs Initial Vital Signs: Vital Signs Temperature 98.7 F 02/06/22 20:20 Pulse Rate 113 H 02/06/22 20:20 Respiratory Rate 30 H 02/06/22 20:20 Blood Pressure 138/84 02/06/22 20:20 Pulse Oximetry 100 02/06/22 20:20 Oxygen Delivery Method 02/06/22 20:20 Course Orders Ordered: Sodium Chloride (Normal Saline 0.9%) 1,000 mls @ 150 mls/hr IV CONT JERMAN Last Admin: 02/07/22 04:14 Dose: 150 mls/hr Documented By: Infusion: 02/07/22 04:14 Dose: 0 mls/hr Documented By: Admin: 02/06/22 21:44 Dose: 150 mls/hr Documented By: BRADFORD Lorazepam (Lorazepam 2 Mg/Ml Inj) 1 mg IV NOW ONE Stop: 02/07/22 06:01 Morphine Sulfate (Morphine 2 Mg/Ml Inj) 2 mg IV Q4HR PRN PRN Reason: Pain, Severe (7-10) Last Admin: 02/07/22 01:00 Dose: 2 mg Documented By: ROMI Ondansetron HCl (Ondansetron 4 Mg/2 Ml Inj) 4 mg IV Q4HR PRN PRN Reason: Nausea And Vomiting Discontinued Medications Hydromorphone HCl (Hydromorphone 1 Mg Inj) 1 mg IV NOW ONE Stop: 02/07/22 03:51 Last Admin: 02/07/22 04:12 Dose: 1 mg Documented By: ROMI Vancomycin HCl/Dextrose (Vancomycin) 1,500 mg in 300 mls @ 200 mls/hr IV NOW ONE Stop: 02/06/22 23:04 Last Infusion: 02/06/22 23:15 Dose: 0 mls/hr Documented By: Admin: 02/06/22 21:44 Dose: 200 mls/hr Documented By: BRADFORD Lorazepam (Lorazepam 2 Mg/Ml Inj) 1 mg IV NOW ONE Stop: 02/07/22 05:32 Consultations Consultation #1: Dr. Marcelo happy to accept patient on her service, given NPO status he can not go to the operating room until tomorrow, antibiotics, NPO, pain control and admission Vital Signs Vital signs: Vital Signs - 8 hr 02/06/22 20:20 02/06/22 20:58 02/06/22 20:58 Temperature 98.7 F Pulse Rate 113 H 114 H 112 H Respiratory Rate 30 H 18 Blood Pressure 138/84 154/84 H Pulse Oximetry 100 100 98 Oxygen Delivery Method Room Air Room Air 02/06/22 21:00 02/06/22 21:00 02/06/22 21:30 Temperature Pulse Rate 110 H 116 H Respiratory Rate Blood Pressure 147/84 H Pulse Oximetry 99 100 Oxygen Delivery Method MDM - Skin/Abscess/Foreign Bdy Lab Data Result diagrams: 02/06/22 20:29 02/06/22 20:29 Labs: Lab Results 02/06/22 02/06/22 02/06/22 Range/Units 20:29 20:29 20:29 WBC 23.6 H (4.5-11.0) X10^3/uL RBC 3.90 L (4.5-5.9) X10^6/uL Hgb 11.6 L (13.5-17.5) g/dL Hct 33.8 L (41-53) % MCV 86.6 (80-100) fL MCH 29.7 (26-34) PG MCHC 34.3 (30-36) % RDW 14.2 (11.6-14.8) % Plt Count 433 H (150-400) X10^3/uL Neut % (Auto) 84.8 H (50-75) % Lymph % (Auto) 8.2 L (25-40) % Crook % (Auto) 6.0 (3-14) % Eos % (Auto) 0.5 L (2-4) % Baso % (Auto) 0.5 (0-2) % Neut # (Auto) 77399 H (1475-5548) /uL Lymph # (Auto) 1900 (9068-6233) /uL Crook # (Auto) 1400 H (0-900) /uL Eos # (Auto) 100 (0-450) /uL Baso # (Auto) 100 (0-100) /uL Sodium 137 (137-145) mmol/L Potassium 3.3 L (3.4-5.1) mmol/L Chloride 107 (98-107) mmol/L Carbon Dioxide 24 (22-32) mmol/L BUN 5 L (9-20) mg/dL Creatinine 0.50 L (0.66-1.25) mg/dL Estimated GFR > 60 (>60) mL/min BUN/Creatinine Ratio 10.0 (6-22) Glucose 114 H (70-100) mg/dL Calcium 7.8 L (8.4-10.2) mg/dL SARS-CoV-2 (PCR) Negative (Negative) Discharge Plan Departure Patient Disposition: Admitted As Inpatient Clinical Impression: Sepsis, Infected hand, Flexor tenosynovitis of finger Admit Date/Time: 02/06/22 22:05 Admit Provider: Crystal Nicholas
[2022-02-06 22:42] VITALS: BP 134/89; PULSE 111; RESP 20; O2SAT 99
[2022-02-07] VITALS (8 sets, daily range): BP systolic 106–148; BP diastolic 64–93; PULSE 90–96; RESP 14–20; TEMP 36.1–37.2; O2SAT 97–100
[2022-02-07] MEDS: MORPHINE 2 MG/ML INJ IV (01:00)
[2022-02-07] MEDS: HYDROMORPHONE 1 MG INJ IV (04:12)
[2022-02-07] MEDS: SODIUM CHLORIDE 0.9% 1,000 ML 150 ML IV (04:14)
[2022-02-07] MEDS: HYDROMORPHONE 2 MG INJ IV (06:33)
[2022-02-07] MEDS: LORazepam 2 MG/ML INJ 1 MG IV (06:35)
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
[2022-02-07] MEDS: CEFAZOLIN 2 GM/100 ML PREMIX 100 ML IV (08:58)
[2022-02-07] MEDS: LACTATED RINGERS 1,000 ML 42 ML IV (09:00)
--- NOTE | 2022-02-07 09:00 | SUR.PHASEI ---
Addendum entered by Irene Barraza R.N. 02/07/22 09:08: In addition, patients mom called by phone by to see if could assist in calming patient prior to medication. Original Note: 02/07/[id number]-faaprly brought to pacu as preop holding by wheelchair by Floor quality engineer/Tuber Machine Operator. patient appears agitated/anxious & sedate (received iv meds by floor). Dr Sandoval and Dr Marcelo at side.Consent signed earlier on floor. Patient is all dressed for home-attempted AMA upstairs on pick pulling machine tender. iv saline lock Rt forearm in situ. Being calmed by Tuber Machine Operator. Meds for pain and anxiety by Dr Sandoval after patient agrees to receiving. left hand swollen. Due to patients claustiphobia/agitated state, unable to get further information/ascessment for preop.To OR after assisted on to stretcher.
[2022-02-07] MEDS: VANCOMYCIN 1,500 MG/300 ML PIGGYBACK 200 MG IV (09:30)
--- NOTE | 2022-02-07 09:37 | SUR.OPER ---
Supine on padded OR bed, head on pillow, arms secured on padded arm boards at <90 degrees abduction, legs uncrossed, safety belt at thigh, tape over blanket over lower legs. position approved by surgeon and anesthesia
[2022-02-07] MEDS: BUPIVACAINE 0.25% W/ EPI 30 ML VIAL INJ (09:54)
--- NOTE | 2022-02-07 10:20 | PM.OP.1 ---
Operative Date/Time/Diagnoses Date of procedure: 02/07/22 Time of procedure: 10:20 Pre-op diagnosis: Sepsis Left hand abscess, cellulitis Left hand ring finger flexor tenosynovitis Ring tourniquet syndrome Post-op diagnosis: same Procedure & Clinicians Procedure: 1. Irrigation debridement flexor tendon sheath left hand ring finger CPT code 71974 2. Debridement left hand ring finger wound and ring removal, debridement skin subcutaneous tissue and metal debris 09129-15 Same procedure as scheduled: Yes Indications: Patient is a 37-year-old male with a history of drug use that presented to the emergency room with leukocytosis and left hand swelling particularly the ring finger with a ring on the ring finger causing a ring tourniquet affect. This was unable to be removed in the ER. He presented previously to this hospital and left against medical advice. Before that he presented to an outside ER where the ring was partially cut but not completed and left that facility. He presents now again and has consented to treatment to surgical treatment. The risks and benefits of the procedure have been discussed with the patient given the opportunity to ask questions. The risks of surgery include but are not limited to infection, malunion, nonunion, persistence of pain, damage to nerves and blood vessels, posttraumatic arthritis, DVT, PE, cardiopulmonary complications and . The patient expressed understanding of the risks and benefits of surgery and has elected to proceed. Consent was signed. Surgeon: Crystal Nicholas Click Yes if Unassisted: Yes Anesthesia Type: General and Local Operative Notes Findings: Swollen left ring finger there is circumferential degloving of the ring finger underneath the ring through the skin and subcutaneous tissue dorsally with excretion is a through the skin volarly. A small amount of white purulence is demonstrated from underneath the ring. There is substantial swelling distal to the ring no gross fluctuance. There is swelling at the A1 mi. The ring was cut off with the motorized ring cutters. The A1 mi was opened. No gross purulence but cultures were taken here. Additionally a midlateral incision was made along the flexor tendon sheath and this was irrigated. 2nd swab was taken from the site of the degloving injury where the ring tourniquet had been. The soft tissue was debrided including the skin subcutaneous tissue and metal debris. After thorough debridement and removal of devitalized tissues 3 excisional debridement around the ring tourniquet clubbing wound this was dressed Closure Type: not applicable Specimen(s): other (Culture sent for microbiology from left ring finger and hand) Estimated Blood Loss (mL): 10 Blood products transfused: none Tourniquet time (min): 15 Procedure in detail: Patient was seen in the preoperative area and up on the floor. Consent was obtained and site of surgery was marked. The patient Was brought back to the operating room general anesthesia was administered. The patient was positioned supine on operative table with the left hand on a hand table. Time-out was performed confirming the patient's side and site of surgery administration of appropriate preoperative antibiotics which is 2 g of Ancef. An additional 1.5 g of vancomycin was ordered to be started following. Left ring finger demonstrated a ring tourniquet with erosion through the skin subcutaneous tissues circumferentially around the ring. Using combination of the needle-nose pliers wire cutters and the motorized ring cutter of the ring was cut in 2 places and removed. The degloving injury was inspected. Next the left upper extremities prepped and draped in the standard sterile fashion a Betadine was used as a prep and a nonsterile forearm tourniquet was placed. Once the drapes were placed the arm was gravity exsanguinated the tourniquet raised on the forearm. Attention was turned to the left ring finger. Metal debris was removed with a curette and the wound was thoroughly irrigated. There was a small amount of white purulence that was expressed from this area and cultures were taken. The devitalized skin and subcutaneous tissue were debrided excisionally. Next attention turned to the palm. The area of the A1 mi was incised through the skin and blunt dissection was taken down through the subcutaneous tissues to the A1 mi. This was opened. Flexor tendons were intact and examined. No gross purulence from the site. Culture was taken. And then distally and mid lateral incision was made along the ring finger. Through and through irrigation was completed along the flexor tendon sheath followed by further debridement and irrigation of the degloving injury from the ring tourniquet. Once this was completed a a loose Monocryl was placed at the palm incision. Xeroform gauze and Webril were placed for dressings followed by 4 x 4 gauze and Coban. Local anesthetic was used for postoperative pain control. Patient was woken from anesthetic and taken to the recovery room in good condition. There no immediate complications from this procedure. Counts were correct. Complications: none Post-operative Condition: stable Disposition: PACU Plan for aftercare: Patient will recover in the PACU only taken back up to his room. Goal would be to receive scheduled IV antibiotics and follow his cultures and improvement in his leukocytosis. With dressing changes starting in 2 days. And when appropriate conversion to oral antibiotics. I have spoken with the patient's mother. I do feel this patient is a high risk to leave against medical advice. I have sent in empiric Bactrim antibiotic prescription to their pharmacy of choice [facility] in that event. the patient can be seen for a follow-up wound check in 7-10 days in Orthopedic Clinic. May weightbear as tolerated. Range of motion as tolerated this
--- NOTE | 2022-02-07 10:20 | SUR.OPER ---
Supine on padded OR bed, head on pillow, arms secured on padded arm boards at <90 degrees abduction, legs uncrossed, safety belt at thigh, tape over blanket over lower legs. Position approved by anesthesia and surgeon.
--- NOTE | 2022-02-07 10:39 | SUR.PREOP ---
02/07/22+1045-patient arouses to voice. opens eyes- attempt again to see if patient can respond to questions on moving left hand fingers and sensation. no verbal interactions. closes eyes and returns to sleep. Dr Nicholas informed and ok, due to pts sedation level. vss. Dressing left hand remains cdi. Continually attempt to reorient and get patinet to avoid rubbing eyes with left hand bulky dressing.
--- NOTE | 2022-02-07 11:13 | SUR.PHASEI ---
02/07/[id number]-Uojpfm to floor RN , Jessica, by phone. Patinet more alert/oriented. aware surgery is over. in better spirits -hugged staff ,very thankful. iv converted to SL for transfer. left hand digits remain swollen,warm,adequate refill, able to move all digit -limited movement due to swelling. States yes when asked if left hand digits touched had normal sensation . to room by stretcher. Pt in room [id number] self onto bed. breaker machine tender at side to recieve pt. Care transfered. Mother in Room.
--- NOTE | 2022-02-07 12:53 | P.PN_ITS ---
Subjective Subjective Date Patient Seen: 02/07/22 Interval history: Called by the floor acute care nurses: patient has now recovered from surgery and is now agitated again and pacing in the room. desires to leave AMA. pts mother also present. Pt is recommended for continued care with IV abx for leukocytosis and hand infection, now also with 1 blood cx positive. Pt declines to stay. Pt signed AMA paperwork. As previously discussed with the patient's mother, I have sent an empiric abx prescription to [facility]. The staff and entire team at [facility] has tired exhaustively to care for this patient on multiple occasions now, with medically necessary and appropriate pr ocedures and intravenous antibiotics. The patient signed out against medical advice. Exam Vital Signs (past 8 hours): - 02/07/22 10:14 02/07/22 10:20 02/07/22 10:20 Temperature Pulse Rate 90 90 93 H Respiratory Rate 20 20 20 Blood Pressure 108/67 113/67 110/71 Pulse Oximetry 100 100 97 Oxygen Delivery Method Nasal Cannula Nasal Cannula Room Air Oxygen Flow Rate 3 2 02/07/22 10:09 02/07/22 10:30 02/07/22 10:43 Temperature 96.9 F L 97.7 F Pulse Rate 93 H 94 H 94 H Respiratory Rate 15 20 14 Blood Pressure 106/64 112/71 129/82 Pulse Oximetry 97 98 99 Oxygen Delivery Method Room Air Room Air Room Air Oxygen Flow Rate 02/07/22 11:08 02/07/22 10:59 Temperature 97.5 F L 97.7 F Pulse Rate 93 H 96 H Respiratory Rate 18 16 Blood Pressure 131/93 H 134/84 Pulse Oximetry 98 97 Oxygen Delivery Method Room Air Oxygen Flow Rate Oxygen Delivery Method Room Air Oxygen Flow Rate 2 Objective Labs Result Diagrams: 02/06/22 20:29 02/06/22 20:29 Labs: Laboratory Results - last 24 hr 02/06/22 02/06/22 02/06/22 20:29 20:29 20:29 WBC 23.6 H RBC 3.90 L Hgb 11.6 L Hct 33.8 L MCV 86.6 MCH 29.7 MCHC 34.3 RDW 14.2 Plt Count 433 H Neut % (Auto) 84.8 H Lymph % (Auto) 8.2 L [place] % (Auto) 6.0 Eos % (Auto) 0.5 L Baso % (Auto) 0.5 Neut # (Auto) 83975 H Lymph # (Auto) 1900 [place] # (Auto) 1400 H Eos # (Auto) 100 Baso # (Auto) 100 Sodium 137 Potassium 3.3 L Chloride 107 Carbon Dioxide 24 BUN 5 L Creatinine 0.50 L Estimated GFR > 60 BUN/Creatinine Ratio 10.0 Glucose 114 H Calcium 7.8 L SARS-CoV-2 (PCR) Negative PFSH Social History household members: none Smoking Status: Never smoker alcohol intake: current Assessment & Plan Post-op Postoperative Procedures: Procedures Operation Date: 02/07/22 08:45 Actual Procedure Side Surgeon p RING REMOVAL LEFT RING FINGER, I&D LEFT HAND Left Crystal Nicholas MD Quality VTE Deep Vein Thrombosis/Pulmonary Embolism Present on Admission: No
--- NOTE | 2022-02-07 13:12 | PC.NURSE ---
Event Note 0800- Patient A&O at change of shift agreeable to plan for surgery at 0800, consent signed and witnessed by this RN. Due to moderate suicide risk assessment during rn shift mgr safety checks done every 15min, no active ideation/plan. Patient picked up by OR crew at 0800 and refused to go to surgery due to lack of sleep and other concerns. Surgeon Dr Nicholas and Anesthesiologist Dr Sandoval at bedside to answer all patients questions and concerns, dry pan charger Rebecca also at bedside. Patient ok for surgery plan after thorough discussion and taken down to PACU at 0830. 1105- Report received from nuclear weapons specialist, patient on floor at 1105. Patient asleep and resting comfortably, thankful for care and apologetic, VSS. Safety checks done every 15min for moderate suicide risk, no active ideation/plan. Food and water provided, up to bathroom to void. No complaints of pain. Mother at bedside. 1200-This RN at bedside. Patient erratic at bedside stating he was going to leave, mother at bedside with grandmother on phone. Patient in distress due to grandmother being called. Patient stated that he wanted to leaved with oral antibiotics and pain control. This RN emphasized treatment plan per surgeon of IV antibiotics therapy for two days. This RN also emphasized risk of sepsis if infection not properly treated. Patient also complained of inadequate pain control. This RN offered several options for treatment plan. Patient refused and stated he would no bed staying for 2 days. SIENA Malloy at bedside to assist with patient deescalation, dry pan charger also at bedside. Surgeon Dr Nicholas called for patient update, per Dr Nicholas patient had two options to remain hospitalized for IV antibiotic treatment or leave against medical. Patient updated on treatment options. Also emphasized options for mental health evaluation and rehab placement post hospital stay. Patient refused all treatment options and outpatient assistance and opted to leave against medical. Form signed by patient and PIV removed by this RN. Due to patient's moderate suicide risk case finishing machine adjuster to call mother for resource options and update Lorenza SWANSON
--- NOTE | 2022-02-07 13:50 | CM.SWNOTE ---
THERAPY TECHNICIAN Note/DCP Note THERAPY TECHNICIAN is requested for THERAPY TECHNICIAN Assessment for patient. When THERAPY TECHNICIAN arrives on acute care floor to meet with patient, THERAPY TECHNICIAN is informed by electrical discharge machine operator that patient has left AMA. Patient is 37 y/o male who presented to due to concern for his pain and swelling on his left hand. Patient presented to ED initially on 02/05/22 and left AMA from the operating room and then returned to ED on 02/06/22. Patient had surgery at 0800 this morning on 02/07/22. Patient has hx of IV polysubstance use. Patient endorsed to ED provider fentanyl and methamphetamine use. Patient's toxicology was positive for Amphetamines, Methamphetamines, ETOH and Marijuana on 02/05/22. It was reported that patient is currently homeless. Patient has no PCP listed and patient has Medicaid insurance. Patient initially reported SI and endorsed thoughts of overdosing on fentanyl. Patient was assessed as moderate SI risk. Per RN, patient was present with his mother Jefferson (Ph. # [phone]) and she reported concerns for his substance use. Patient left AMA with mother at approximately 1300. THERAPY TECHNICIAN calls [facility] dispatch and reports concern of patient's AMA discharge and SI risk. Dispatch reports they will attempt to do a welfare check on patient's listed [facility] address. THERAPY TECHNICIAN calls patient's mother and leaves requesting return call. THERAPY TECHNICIAN calls [facility] crisis line to dispatch team to assess patient's well being. Crisis intake states that they will dispatch a DCR. Plan: [facility] and [facility] outreach team to f/u with patient, THERAPY TECHNICIAN awaiting call from patient's mother. Patient left AMA. DONG Godwin
== END 2022-02-07 13:00 | disposition home or self-care (01) | DRG 854 ==
LOC: ED 21:26 → AC 22:43
PROVIDERS: Admitting Provider Orthopaedic Surgery Foot and Ankle Surgery; Emergency Provider Emergency Medicine; Referring Provider Emergency Medicine; Visit Provider Orthopaedic Surgery Foot and Ankle Surgery
PROC: 0JBK0ZZ Excision of Left Hand Subcutaneous Tissue and Fascia, Open Approach (ICD-10-PCS; principal; 2022-02-07 08:45)
DX: A41.9 Sepsis, unspecified organism (principal); L03.114 Cellulitis of left upper limb; M65.142 Other infective (teno)synovitis, left hand; S61.205A Unspecified open wound of left ring finger without damage to nail, initial encounter; W49.04XA Ring or other jewelry causing external constriction, initial encounter; Z20.822 Contact with and (suspected) exposure to COVID-19; Z53.29 Procedure and treatment not carried out because of patient's decision for other reasons
CPT/HCPCS: 36415; 80048; 85025; 87070; 87075; 87186; 87205; 87635; 96365; 99284; C9803; G0378; J0690; J1170; J2060; J2250; J2270; J2405; J2704; J3010

== ENCOUNTER → 2024-01-25 15:58 | Outpatient (CLI) | payer OTHER, SELFPAY ==
--- NOTE | 2024-01-25 15:59 | DI.ECHO.S_ITS ---
[facility] : : [address] : : [place] : : [id number] : : Phone: [phone] Echocardiogram Report + + :Name: MARCELINO CASTILLO Study Date: 01/25/2024 Height: 64 in : :[facility] ReadingLocation: Weight: 227 lb : : Gender: Male BSA: 2.1 m2 : :: 1985 Age: 38 yrs BP: 125/85 mmHg: :Reason For Study: ATRIAL FIBRILLATION : :Ordering Physician: ISIS, : :MONIKA Performed By: Silvana Small : :Referring: MONIKA SERRA : + + Interpretation Summary 1) Normal left ventricular thickness, size, wall motion, and systolic function (EF 55-60%). 2) Normal right ventricular size and function. 3) No significant valvular abnormalities. 4) No prior Echo available for comparison. Procedure: A two-dimensional transthoracic echocardiogram with color flow and Doppler was performed. The study quality was technically adequate. There is no prior echocardiogram noted for this patient. The patient was in sinus rhythm with heart rates between 53-80 bpm during the exam. Left Ventricle: The left ventricle is normal in size and wall thickness. The ejection fraction is estimated to be 55-60%. Left ventricular systolic function appears normal without focal wall motion abnormalities. Diastolic parameters suggest a relaxation abnormality of the left ventricle, consistent with probable normal filling pressures. Right Ventricle: The right ventricle is normal in size and function. Atria: The left atrium is mildly dilated. Right atrial size is normal. There is no Doppler evidence for an interatrial shunt. Mitral Valve: The mitral valve is normal in structure and function. There is mild mitral regurgitation. Aortic Valve: The aortic valve is trileaflet. The aortic valve opens well. There is no aortic valve stenosis. No aortic regurgitation is present. Tricuspid Valve: The tricuspid valve is normal in structure and function. There is mild tricuspid regurgitation. Right ventricular systolic pressure is estimated to be 31 mmHg plus the clinically estimated CVP which cannot be estimated on this exam. Pulmonic Valve: The pulmonic valve leaflets are thin and pliable; valve motion is normal. There is trace pulmonic regurgitation. Great Vessels: The aortic root is normal size. The dimensions of the ascending aorta are normal. No Doppler or imaging evidence of an aortic coarctation. The inferior vena cava was not well visualized. Pericardium/ Pleura There is no pericardial effusion. There is no pleural effusion. MMode/2D Measurements & Calculations LVIDd: 4.8 cm LVOT diam: 2.1 cm LVIDs: 3.4 cm Ao root diam: 3.0 cm FS: 28.6 % asc Aorta Diam: 2.7 cm IVSd: 0.82 cm Ao Arch Diam (Prox Trans): 2.8 cm LVPWd: 0.86 cm LV granados. diameter/BSA (cm/m^2): 2.3 LV sys. diameter/BSA (cm/m^2): 1.7 LA A2 area: 21.4 cm2 RA long axis: 5.0 cm LA A4 area: 23.2 cm2 RA area: 18.1 cm2 LA length (vol): 6.0 cm RA vol: 55.8 ml LA vol: 69.4 ml RA : 27.0 ml/m2 LA vol index: 33.6 ml/m2 RVD1 (basal): 3.9 cm TAPSE: 2.4 cm Doppler Measurements & Calculations Ao V2 max: 153.1 cm/sec LVOT Max Jose: 95.7 cm/sec Ao V2 mean: 107.2 cm/sec LV V1 max P.7 mmHg Ao max P.4 mmHg LV V1 VTI: 22.9 cm Ao mean P.1 mmHg MYNOR(I,D): 2.4 cm2 Ao V2 VTI: 33.5 cm MYNOR(V,D): 2.2 cm2 sev ratio: 0.69 MYNOR indexed to BSA (cm^2/m^2): 1.2 MV E max jose: 107.7 cm/sec TR max jose: 276.5 cm/sec MV A max jose: 39.3 cm/sec TR max P.6 mmHg MV E/A: 2.7 PA V2 max: 115.5 cm/sec Med Peak E' Jose: 12.8 cm/sec PA V2 mean: 82.4 cm/sec E/E' med: 8.4 PA mean P.1 mmHg Lat Peak E' Jose: 12.0 cm/sec PA pr(Accel): 22.5 mmHg E/E' lat: 8.9 E/e' average: 8.7 MV dec time: 0.18 sec SV([facility]): 81.7 ml Reading Physician:10:30 PM
== END ==
PROVIDERS: Referring Provider Internal Medicine Cardiovascular Disease; Visit Provider Internal Medicine Cardiovascular Disease
DX: I48.0 Paroxysmal atrial fibrillation (principal); I08.1 Rheumatic disorders of both mitral and tricuspid valves
CPT/HCPCS: 93306